=== PATIENT | male | born 1990 | race Caucasian/White ===

== ENCOUNTER 2021-04-25 03:30 | Inpatient (IN) | payer OTHER ==
[~2021-04-25] VITALS: Ht 177.8 cm; Wt 118.2 kg
[2021-04-25 05:38] LABS: BASOPHILS 0.4 % (0-2); EOSINOPHILS 1.3 % (0-7); HEMOGLOBIN 14.9 g/dL (13.5-17.5); LYMPHOCYTES 12.2 % (15-50); MCH 27.5 pg (26.0-34.0); MCV 83.3 fL (80.0-100.0); MEAN PLATELET VOLUME 8.5 fL (7.4-10.4); MONOCYTES 7.7 % (2-11); NEUTROPHILS 78.4 % (40-80); PLATELET COUNT 215 10x3/uL (130-400); RBC 5.41 10x6/uL (4.20-6.10); RDW 14.2 % (11.5-14.5); WBC 12.3 10x3/uL (4.8-10.8)
[2021-04-25 05:53] LABS: CALC OSMOLALITY 281 mosm/kg (275-300); CALCIUM 8.8 mg/dL (8.5-10.1); CARBON DIOXIDE 26.7 mmol/L (21.0-32.0); CHLORIDE - SERUM 107 mmol/L (98-107); CREATININE - SERUM 0.8 mg/dL (0.6-1.3); GLUCOSE 124 mg/dL (74-106); POTASSIUM - SERUM 4.2 mmol/L (3.5-5.1); SODIUM 141 mmol/L (136-145); UREA NITROGEN 13 mg/dL (7-18); eGFR NON AFRICAN AMERICAN > 90 mL/min (90-120)
[2021-04-25 05:59] LABS: ALBUMIN 3.6 g/dL (3.4-5.0); ALKALINE PHOSPHATASE 103 U/L (30-120); ALT (SGPT) 57 U/L (10-68); BILIRUBIN - TOTAL 0.75 mg/dL (0.2-1.3); C-REACTIVE PROTEIN 4.1 mg/dL (0.0-0.9); PROTEIN - SERUM 7.5 g/dL (6.4-8.2)
--- NOTE | 2021-04-25 07:38 | NUR ---
RESTING IN BED A/A/OX3. CONT TO C/O PAIN. RESP EVEN/UNLABORED. SKIN W/D/P
[2021-04-25 07:39] VITALS: BP 115/69
[2021-04-25 08:16] VITALS: BP 128/76
--- NOTE | 2021-04-25 08:30 | NUR ---
SPOKE WITH RICARDA VALERIO HAS BEEN CONSULTED
--- NOTE | 2021-04-25 10:05 | NUR ---
DR SEARS ROUNDED. RPEORTS SX TOMORROW OK FOR PT TO HAVE FULL LIQUID DIET TODAY
[2021-04-25 10:33] VITALS: BP 108/61
[2021-04-25 14:48] VITALS: BP 116/70
--- NOTE | 2021-04-25 16:37 | NUR ---
REPORT TO FRANCO SINGH
[2021-04-25 20:59] VITALS: BP 121/71
[2021-04-25 23:55] VITALS: BP 109/69
[2021-04-26 02:40] VITALS: Ht 177.8 cm; Wt 118.2 kg
[2021-04-26 03:51] VITALS: BP 131/87
[2021-04-26 06:31] LABS: BASOPHILS 0.3 % (0-2); EOSINOPHILS 0.9 % (0-7); HEMATOCRIT 41.1 % (42.0-54.0); HEMOGLOBIN 13.9 g/dL (13.5-17.5); LYMPHOCYTES 12.1 % (15-50); MCH 27.7 pg (26.0-34.0); MCHC 33.7 g/dL (31.0-37.0); MCV 82.2 fL (80.0-100.0); MEAN PLATELET VOLUME 8.6 fL (7.4-10.4); MONOCYTES 7.9 % (2-11); NEUTROPHILS 78.8 % (40-80); PLATELET COUNT 229 10x3/uL (130-400); RDW 14.2 % (11.5-14.5); WBC 13.4 10x3/uL (4.8-10.8)
[2021-04-26 06:50] LABS: ALBUMIN 3.4 g/dL (3.4-5.0); ALKALINE PHOSPHATASE 120 U/L (30-120); BILIRUBIN - TOTAL 0.93 mg/dL (0.2-1.3); CALCIUM 8.9 mg/dL (8.5-10.1); CARBON DIOXIDE 30.1 mmol/L (21.0-32.0); CHLORIDE - SERUM 105 mmol/L (98-107); CREATININE - SERUM 0.8 mg/dL (0.6-1.3); GLUCOSE 105 mg/dL (74-106); MAGNESIUM - SERUM 2.2 mg/dL (1.8-2.4); PHOSPHOROUS 3.8 mg/dL (2.5-4.9); PROTEIN - SERUM 7.4 g/dL (6.4-8.2); SODIUM 140 mmol/L (136-145); eGFR NON AFRICAN AMERICAN > 90 mL/min (90-120)
[2021-04-26 06:51] LABS: ALT (SGPT) 86 U/L (10-68); CALC OSMOLALITY 277 mosm/kg (275-300); UREA NITROGEN 9 mg/dL (7-18)
[2021-04-26 09:01] VITALS: BP 112/69
--- NOTE | 2021-04-26 14:21 | NUR ---
RECEIVED REPORT FROM CARLEE IN PACU, PT TO ARRIVE SOON
[2021-04-26 14:32] VITALS: BP 118/66
[2021-04-26 17:15] VITALS: BP 117/71
[2021-04-26 20:00] VITALS: BP 119/75
[2021-04-27] VITALS: BP 95/59
[2021-04-27 04:00] VITALS: BP 100/67
[2021-04-27 05:15] LABS: BASOPHILS 0.1 % (0-2); EOSINOPHILS 0.3 % (0-7); HEMATOCRIT 40.4 % (42.0-54.0); HEMOGLOBIN 13.5 g/dL (13.5-17.5); LYMPHOCYTES 10.1 % (15-50); MCH 27.4 pg (26.0-34.0); MCHC 33.3 g/dL (31.0-37.0); MCV 82.3 fL (80.0-100.0); MEAN PLATELET VOLUME 8.4 fL (7.4-10.4); MONOCYTES 7.1 % (2-11); NEUTROPHILS 82.4 % (40-80); PLATELET COUNT 260 10x3/uL (130-400); RBC 4.92 10x6/uL (4.20-6.10); RDW 13.9 % (11.5-14.5); WBC 13.7 10x3/uL (4.8-10.8)
--- NOTE | 2021-04-27 05:59 | NUR ---
I have reviewed this patient and I concur with the Shift Assessment completed by the Licensed Practical Nurse today this shift.
[2021-04-27 06:07] LABS: ALBUMIN 3.1 g/dL (3.4-5.0); ALKALINE PHOSPHATASE 123 U/L (30-120); ALT (SGPT) 90 U/L (10-68); BILIRUBIN - TOTAL 0.66 mg/dL (0.2-1.3); CALC OSMOLALITY 284 mosm/kg (275-300); CALCIUM 8.5 mg/dL (8.5-10.1); CARBON DIOXIDE 24.2 mmol/L (21.0-32.0); CHLORIDE - SERUM 107 mmol/L (98-107); CREATININE - SERUM 0.8 mg/dL (0.6-1.3); GLUCOSE 116 mg/dL (74-106); MAGNESIUM - SERUM 2.1 mg/dL (1.8-2.4); PROTEIN - SERUM 7.2 g/dL (6.4-8.2); SODIUM 142 mmol/L (136-145); eGFR NON AFRICAN AMERICAN > 90 mL/min (90-120)
[2021-04-27 06:08] LABS: UREA NITROGEN 14 mg/dL (7-18)
[2021-04-27 09:04] VITALS: BP 112/67
[2021-04-27] MEDS ORDERED: FLORAJEN DIGES1 EACH PO (09:39)
[2021-04-27] MEDS ORDERED: HYDROCODON-ACE1 EAC7 PO (10:16)
[2021-04-27] MEDS ORDERED: COLACE100 MG PO (10:16)
[2021-04-27] MEDS ORDERED: VALIUM5 MG PO (10:17)
--- NOTE | 2021-04-27 11:59 | NUR ---
DC HOME AT THIS TIME WITH AT BEDSIDE. BOTH PT AND VOICES UNDERSTAND OF DC INSTRUCTION. IV DC AT THIS TIME. STABLE CONDITION UPON DEPARTURE.
--- NOTE | 2021-04-29 18:19 | MORECARE ---
CASE MANAGEMENT DISCHARGE SUMMARY PATIENT: VANDANA VICTORIA UNIT: [id number] ADM DATE: 04/25/21 AGE: 30 : 89 SEX: M ROOM/BED: D.2208 AUTHOR: JESSE,DOC PHYSICIAN: REFERRING PHYSICIAN: IVANIA PURCELL MD DATE OF SERVICE: 04/29/21 Case Management Discharge Planning Summary DCP REVIEW SUMMARY ANTICIPATED D/C DATE: EXPECTED LOS : CASE STATUS: DCP Complete INITIAL REVIEW: 04/25/2021 INITIAL REVIEWER: Lizbeth Ruiz FINAL DISCHARGE DISPOSITION: : FINAL REVIEWER: FINAL REVIEW DATE: DCP [employer] Questions [employer] QUESTION: ANSWER : PATIENT: VANDANA VICTORIA ENCOUNTER: [id number] MEDICAL RECORD#: [id number] ADMISSION DATE: 04/25/2021 DISCHARGE DATE: 04/27/2021 ATTENDING MD: : AGE: 30 MARITAL STATUS: S DC PLAN ID: [id number] FACILITY: [facility] PRINTED ON: 04/29/21 18:19 CT All edits/amendments must be made on the electronic document DICTATION DATE: 04/29/211818 LENS EDGER: KATRINA 04/29/211818 RPT#: [id number] DC DATE:04/27/21 STATUS: DIS IN [facility] [address] [place] [address] END OF REPORT
== END 2021-04-27 12:02 | disposition home or self-care (01) | DRG 395 ==
LOC: D.ER 03:30 → D.EDHOLD 04:51 → D.MS 04:51 → D.EDHOLD 04:51 → OBSVTIME 04:54 → D.MS 15:27
PROVIDERS: Emergency Medicine; Family Medicine; ADMIT Family Medicine; ATTEND Family Medicine
DX: K61.1 Rectal abscess (principal); D72.829 Elevated white blood cell count, unspecified